=== PATIENT | female | born 1930 | race Hispanic/Latino ===

== ENCOUNTER 2017-10-05 09:00 | Outpatient (CLI) | payer MEDICARE, OTHER | END 2017-10-05 09:01 | disposition home or self-care (01) | LOC: ECHO 09:00 | PROVIDERS: ATTEND Internal Medicine | DX: I08.0 Rheumatic disorders of both mitral and aortic valves (principal); R94.31 Abnormal electrocardiogram [ECG] [EKG]; Z87.891 Personal history of nicotine dependence | CPT/HCPCS: 93306 ==

== ENCOUNTER 2017-10-07 09:20 | Observation (INO) | payer MEDICARE, OTHER ==
[2017-10-07] MEDS ORDERED: ANCEF/STERILE WATER 2 GM/20 ML 2 GM/20 ML SYRINGE IV NR (10:00)
[2017-10-07 10:29] LABS: Basophils # (Auto) 0.1 K/mm3 (0.0-0.1); Basophils % (Auto) 0.7 % (0.0-1.8); Eosinophils # (Auto) 0.1 K/mm3 (0.0-0.4); Eosinophils % (Auto) 1.5 % (0.0-4.3); Hematocrit 38.4 % (30.3-42.9); Hemoglobin 12.9 gm/dl (10.1-14.3); Lymphocytes # (Auto) 1.4 K/mm3 (1.2-5.4); Lymphocytes % (Auto) 18.3 % (13.4-35.0); Mean Corpuscular HGB Conc 34 % (30-34); Mean Corpuscular Hemoglobin 31 pg (28-32); Mean Corpuscular Volume 91 fl (79-97); Monocytes # (Auto) 0.7 K/mm3 (0.0-0.8); Monocytes % (Auto) 8.7 % (0.0-7.3); Platelet Count 143 K/mm3 (140-440); Red Blood Count 4.23 M/mm3 (3.65-5.03); Red Cell Distribution Width 13.7 % (13.2-15.2)
[2017-10-07 10:39] LABS: INR 0.88 (0.87-1.13)
[2017-10-07 10:40] LABS: Partial Thromboplastin Time 30.5 Sec. (24.2-36.6)
[2017-10-07 10:52] LABS: BUN/Creatinine Ratio 39; Blood Urea Nitrogen 27 mg/dL (7-17); Calcium 9.1 mg/dL (8.4-10.2); Hemolysis Index 41
[2017-10-07] MEDS ORDERED: NACL 0.9% 1,000 ML, VANCOMYCIN VIAL 1,000 MG IR ONE (11:00)
[2017-10-07] MEDS ORDERED: NACL 0.9% 1000 ML 1,000 ML ONE (11:45)
[2017-10-07] MEDS ORDERED: DIPRIVAN 10 MG/ML IV ONE ×3 (14:42)
[2017-10-07] MEDS ORDERED: SUBLIMAZE ONE (14:42)
[2017-10-07] MEDS ORDERED: VERSED ONE (14:42)
[2017-10-07] MEDS ORDERED: NEO SYNEPHRINE/NS Syringe(OR USE) IV ONE (14:48)
--- NOTE | 2017-10-07 14:48 | Anesthesia Consultation ---
Anesthesia Consult and Med Hx Date of service: 10/07/17 - Airway Anesthetic Teeth Evaluation: Dentures ROM Head & Neck: Adequate Mental/Hyoid Distance: Adequate Mallampati Class: Class I Intubation Access Assessment: Good - Pulmonary Exam CTA: Yes - Cardiac Exam Cardiac Exam: RRR - Pre-Operative Health Status ASA Pre-Surgery Classification: ASA3 Proposed Anesthetic Plan: MAC - Pre-Anesthesia Comment Pre-Anesthesia Comments: left shoulder pain, s/p fall 04/2017. diastolic dysfunction - Pulmonary Hx Asthma: Yes (controlled, no inhaler use > yr ) - Cardiovascular System Hx Hypertension: Yes Hx Heart Attack/AMI: No Hx Pacemaker: No Hx Peripheral Vascular Disease: No - Endocrine Hx Non-Insulin Dependent Diabetes: Yes - Other Systems Hx Cancer: No
--- NOTE | 2017-10-07 14:49 | Anesthesia Day of Surgery ---
Anesthesia Day of Surgery - Day of Surgery Patient Examined: Yes Patient H&P Reviewed: Yes Patient is NPO: Yes
[2017-10-07] MEDS ORDERED: XYLOCAINE MPF 2% ONE (15:00)
[2017-10-07] MEDS: NACL 0.9% 500 ML 500 ML ONE ×2 (15:10→15:22)
[2017-10-07] MEDS ORDERED: NACL 0.9% 500 ML IR ONE (15:17)
[2017-10-07] MEDS ORDERED: ANCEF/STERILE WATER 2 GM/20 ML 2 GM/20 ML SYRINGE IV ONE (15:18)
[2017-10-07] MEDS ORDERED: MARCAINE 0.5% 60 ML INFILTRATI ONE (15:18)
[2017-10-07] MEDS: XYLOCAINE 1% 20 mL ONE ×2 (15:22→15:23)
[2017-10-07] MEDS ORDERED: HEPARIN 10,000 UNITS/10 ML ONE (15:35)
[2017-10-07] MEDS ORDERED: VANCOMYCIN VIAL 1,000 MG in NACL 0.9% 1,000 ML IRRIGATION ONE (16:20)
[2017-10-07] MEDS ORDERED: NORCO 5/325 PO PRN (16:41)
[2017-10-07] MEDS ORDERED: ANCEF/NS 1 GM/50 ML 1 GM/50 ML BAG IV SCH (17:00)
[2017-10-07] MEDS ORDERED: NORCO 5/325 ONE (17:41)
--- NOTE | 2017-10-07 17:48 | XRay Report ---
FINAL REPORT PROCEDURE: XR CHEST 1V AP TECHNIQUE: Chest radiograph anteroposterior view. CPT 97047 HISTORY: Pacemaker postop. COMPARISON: No prior studies are available for comparison. FINDINGS: Heart: Mild cardiomegaly. Dual-chamber pacer. Mediastinum/Vessels: Aortic calcification and tortuosity. Lungs/Pleural space: Normal. Bony thorax: Mild osteopenia and degenerative changes of the spine. Moderate to severe degenerative changes of the bilateral shoulders, with possible proliferative changes. Both humeral heads are high riding suggesting rotator cuff pathology. Life support devices: None. IMPRESSION: Cardiomegaly. Dual-chamber pacer. No pneumothorax on limited portable exam. Aortic calcification and tortuosity. Findings in the bilateral shoulders can be better evaluated on dedicated radiographs if there is continued clinical concern.
[2017-10-07] MEDS: ceFAZolin 1 GM in NACL 0.9% 20 ML IV SCH (22:49)
[2017-10-08] MEDS: HumuLIN R SUB-Q SCH ×2 (08:00→12:33)
--- NOTE | 2017-10-08 09:08 | Short Stay Summary ---
Short Stay Documentation Date of service: 10/08/17 - History H&P: obtained from office - Allergies and Medications Current Medications: Allergies ciprofloxacin [From Cipro] Allergy (Severe, Verified 10/07/17 10:30) Rash naproxen Allergy (Severe, Verified 10/07/17 10:30) Rash sulfamethoxazole Allergy (Severe, Verified 10/07/17 16:51) Rash adhesive tape Adverse Reaction (Severe, Verified 10/07/17 10:30) pulls skin off Home Medications Medication Instructions Recorded Confirmed Last Taken Type Telmisartan/Hydrochlorothiazid 1 tab PO DAILY 10/07/17 10/07/17 10/06/17 History [Micardis Hct 40-12.5 mg Tablet] metFORMIN XR [Glucophage XR] 250 mg PO BID 10/07/17 10/07/17 10/06/17 History Active Medications Acetaminophen/Hydrocodone Bitart ([place] 5/325) 1 each PO Q6H PRN PRN Reason: Pain, Moderate (4-6) Last Admin: 10/07/17 17:43 Dose: 1 each Insulin Human Regular (Humulin R) 0 units SUB-Q ACHS NEEL; Protocol - Brief post op/procedure progress note Date of procedure: 10/07/17 Pre-op diagnosis: sick sinus syndrome Post-op diagnosis: same Procedure: pacemaker implantation - Hospital course Hospital course: The patient is an 87 year old female with a history of sick sinus syndrome who is followed by Dr. Soliman in the office who presented on 10/07/17 and underwent successful pacemaker implantation by Dr. Navarro. She was monitored on telemetry overnight and remained hemodynamically stable. Post-procedure CXR satisfactory. Device interrogation this morning revealed normal device function. Patient will be discharged home today in stable condition. Follow up appointment for an incision check in the [place] office on 10/18/17 at 11: 00am. - Disposition Condition at discharge: Stable Disposition: [id number] TO HOME OR SELFCARE - Discharge Diagnoses (1) Pacemaker Status: Acute (2) Sick sinus syndrome Status: Acute (3) Hypertension Status: Chronic (4) Diabetes Status: Chronic Short Stay Discharge Plan Activity: advance as tolerated Weight Bearing Status: Weight Bear as Tolerated Diet: low fat, low cholesterol, diabetic Wound: keep clean and dry Follow up with: MICKIE NAVARRO MD [Staff Physician] - 10/18/17 11:00 am ([place] office) AMANDA SOLIMAN MD [Primary Care Provider] - 10/12/17 3:00 pm ([facility]) Prescriptions: HYDROcodone/APAP 5-325 [[place] 5-325 mg TAB] 1 each PO Q6H PRN #10 tablet PRN Reason: Pain, Moderate (4-6)
[2017-10-08] MEDS: ceFAZolin 1 GM in NACL 0.9% 20 ML IV SCH (09:28)
[2017-10-08 13:08] VITALS: BP 136/43
== END 2017-10-08 13:30 | disposition home or self-care (01) ==
LOC: CATHLABREC 09:20 → 4A 11:26
PROVIDERS: ADMIT Internal Medicine Cardiovascular Disease; ATTEND Internal Medicine Cardiovascular Disease
DX: I49.5 Sick sinus syndrome (principal); R00.1 Bradycardia, unspecified; I10 Essential (primary) hypertension; E11.9 Type 2 diabetes mellitus without complications
CPT/HCPCS: 33208; 36415; 71045; 80048; 82962; 85025; 85610; 85730; 93005; 93010; 96374; 96375; C1769; C1779; C1785; C1892; G0378; J0690; J2250; J2704; J3010; J3370; J7030; J7040; 96376; J1644; J2370; Q9967